=== PATIENT | female | born 1935 | race Caucasian/White ===

== ENCOUNTER 2023-04-22 13:16 | Day surgery (SDC) | payer MEDICARE ==
[~2023-04-22] VITALS: Ht 157.5 cm; Wt 58.2 kg
[2023-04-22] VITALS (8 sets, daily range): BP systolic 154–198; BP diastolic 73–95
[2023-04-22] MEDS ORDERED: OMEG-45 PO (13:41)
[2023-04-22] MEDS ORDERED: TURM500C4 PO (13:41)
[2023-04-22] MEDS ORDERED: MULT-955 PO (13:41)
[2023-04-22] MEDS ORDERED: CHOL400T57 PO (13:41)
[2023-04-22] MEDS ORDERED: ASCO-162 PO (13:41)
[2023-04-22] MEDS ORDERED: GARL400T15 PO (13:41)
[2023-04-22] MEDS ORDERED: APIX5TAB3 PO (13:41)
[2023-04-22] MEDS ORDERED: normal saline 1000ml 1,000 ML IV SCH (13:50)
[2023-04-22] MEDS ORDERED: fentaNYL/PF 50MCG/1 ML 2ML syringe IV ONE (13:50)
[2023-04-22] MEDS ORDERED: MIDAZolam 1mg/ml 10ml vial IV ONE (13:50)
== END 2023-04-22 15:35 | disposition home or self-care (01) ==
LOC: SSTAY O 13:16
PROVIDERS: ATTEND Student in an Organized Health Care Education/Training Program
DX: I48.91 Unspecified atrial fibrillation (principal); I10 Essential (primary) hypertension; Z79.01 Long term (current) use of anticoagulants; Z79.899 Other long term (current) drug therapy
CPT/HCPCS: 92960; 93005; J2250; J3010; J7030; A4620